=== PATIENT | female | born 2000 | race American Indian/Alaskan Native ===

== ENCOUNTER 2023-03-20 17:59 | Emergency (ER) | payer MEDICAID ==
[2023-03-20 18:30] LABS: AMPHETAMINES SCREEN, URINE NEGATIVE (NEGATIVE); BARBITURATE SCREEN,URINE NEGATIVE (NEGATIVE); BENZODIAZEPINES SCREEN,URINE NEGATIVE (NEGATIVE); METHADONE SCREEN, URINE NEGATIVE (NEGATIVE); METHAMPHETAMINES SCREEN, URINE NEGATIVE (NEGATIVE); OXYCODONE SCREEN,URINE NEGATIVE (NEGATIVE); PROPOXYPHENE SCREEN,URINE NEGATIVE (NEGATIVE); THC SCREEN,URINE 50 NG/ML PRESUMPTIVE POSITIVE (NEGATIVE)
[2023-03-20 18:37] LABS: CALCIUM 8.7 mg/dL (8.5-10.1); CREATININE 0.8 mg/dL (0.6-1.0); EST CRCL DRUG DOSING (CG) 100.41 mL/min; POTASSIUM,K 3.4 mmol/L (3.6-5.2)
[2023-03-20 18:38] LABS: ANION GAP 10.4 mmol/L (5.0-14.0)
[2023-03-20 18:49] LABS: A/G RATIO 1.1 (1.2-2.2); ALANINE AMINOTRANSFERASE,ALT 17 U/L (12-78); ALBUMIN 3.6 g/dL (3.4-5.0); ALKALINE PHOSPHATASE 58 U/L (46-116); ASPARTATE AMNIOTRANSFERASE,AST 11 U/L (15-37); BILIRUBIN DIRECT 0.05 mg/dL (0.0-0.2); BILIRUBIN TOTAL 0.2 mg/dL (0.2-1.0)
[2023-03-20 19:21] LABS: APPEARANCE,URINE CLEAR (CLEAR); BILIRUBIN,URINE NEGATIVE (NEGATIVE); COLOR,URINE YELLOW (YELLOW); GLUCOSE,URINE NEGATIVE (NEGATIVE); KETONES,URINE NEGATIVE (NEGATIVE); LEUKOCYTE ESTERASE,URINE NEGATIVE (NEGATIVE); NITRITE,URINE NEGATIVE (NEGATIVE); OCCULT BLOOD,URINE NEGATIVE (NEGATIVE); PROTEIN,URINE NEGATIVE (NEGATIVE); UROBILINOGEN,URINE 0.2 EU/dL (0.2-1.0)
[2023-03-20 19:26] LABS: AMORPHOUS SEDIMENT,URINE NOT SEEN; BACTERIA,URINE RARE; EPITHELIAL CELLS,URINE FEW; MUCUS,URINE NOT SEEN; RBC,URINE 0-5 (0-5); WBC,URINE 0-5 (0-5)
== END 2023-03-20 20:10 | disposition other institution (70) ==
LOC: JP.ED 17:59
DX: F11.10 Opioid abuse, uncomplicated (principal); F17.210 Nicotine dependence, cigarettes, uncomplicated
CPT/HCPCS: 36415; 80048; 80076; 80305-QW; 80307; 81001; 81025; 99283

== ENCOUNTER 2023-03-22 15:54 | Emergency (ER) | payer MEDICAID ==
[2023-03-22] MEDS ORDERED: LORazepam 2 MG/ML SDV IVPUSH ONE (18:03)
[2023-03-22] MEDS ORDERED: Hyoscyamine 0.125 MG Tab.SL SL ONE (18:03)
[2023-03-22] MEDS ORDERED: Lactated Ringers 1,000 ML IV ONE (18:03)
[2023-03-22 18:17] LABS: BASOPHILS ABSOLUTE AUTO 0.03 K/uL (0.00-0.10); BASOPHILS PERCENT AUTO 0.3 % (0.1-1.3); HEMATOCRIT 41.4 % (34.3-46.0); IMMATURE GRAN ABSOLUTE AUTO 0.03 K/uL (0.00-0.23); IMMATURE GRAN PERCENT AUTO 0.3 % (0.0-0.7); LYMPHOCYTES ABSOLUTE AUTO 0.67 K/uL (0.8-3.3); LYMPHOCYTES PERCENT AUTO 5.7 % (11.4-47.7); MEAN CORPUSCULAR HEMOGLOBIN 26.8 pg (31.6-35.5); MEAN CORPUSCULAR HGB CONC 33.8 g/dL (31.6-35.5); MEAN CORPUSCULAR VOLUME 79.2 fL (81.4-99.0); MONOCYTES ABSOLUTE AUTO 0.22 K/uL (0.20-0.90); MONOCYTES PERCENT AUTO 1.9 % (3.3-12.6); NEUTROPHILS ABSOLUTE AUTO 10.89 K/uL (1.0-7.6); NEUTROPHILS PERCENT AUTO 91.8 % (40.0-78.1); PLATELET COUNT,PLT 388 K/uL (130-375); RED BLOOD CELL COUNT 5.23 M/uL (3.77-5.24); WHITE BLOOD CELL COUNT,WBC 11.8 K/uL (3.2-11.0)
[2023-03-22 18:33] LABS: CALCIUM 9.1 mg/dL (8.5-10.1); CREATININE 0.8 mg/dL (0.6-1.0); EST CRCL DRUG DOSING (CG) 100.4 mL/min; POTASSIUM,K 3.5 mmol/L (3.6-5.2)
[2023-03-22 18:36] LABS: ANION GAP 17.5 mmol/L (5.0-14.0)
[2023-03-22] MEDS ORDERED: Ondansetron 4 MG/2 ML SDV IVPUSH ONE (22:50)
[2023-03-23] MEDS ORDERED: Melatonin 3 MG Tab PO SCH ×2 (02:37→21:00)
[2023-03-23] MEDS ORDERED: diphenhydrAMINE 25 MG Cap PO ONE (02:42)
[2023-03-23] MEDS ORDERED: Prochlorperazine 10 MG/2 ML SDV IVPUSH ONE (02:45)
[2023-03-23] MEDS ORDERED: diphenhydrAMINE 50 MG/ML SDV IVPUSH ONE (02:46)
== END 2023-03-23 06:54 | disposition home or self-care (01) ==
LOC: JP.ED 15:54
DX: F11.93 Opioid use, unspecified with withdrawal (principal); F17.210 Nicotine dependence, cigarettes, uncomplicated; Z88.8 Allergy status to other drugs, medicaments and biological substances
CPT/HCPCS: 36415; 80048; 83605; 85025; 96361; 96374; 96375; 99284; A9270; J0780; J1200; J2060; J2405; J7120